=== PATIENT | female | born 1960 | race Caucasian/White ===

== ENCOUNTER 2022-06-04 14:28 | Inpatient (IN) | payer OTHER ==
--- NOTE | 2022-06-04 15:26 | ER ---
Nurse's Notes [facility] Name: Lakshmi Salazar Age: 62 yrs Sex: Female : 1960 Arrival Date: 06/04/2022 Time: 14:30 Bed 20 Private MD: Diagnosis: Cellulitis of other sites;Type 2 diabetes mellitus with foot ulcer;Tachycardia, unspecified Presentation: 06/04 14:30 Chief complaint: Patient states: Toned out to pt home for right foot pain. C/O Right ld1 big toe swelling \T\ pain, redness going up to right ankle. Reports being diabetic. Coronavirus screen: At this time, the client does not indicate any symptoms associated with coronavirus-19. Ebola Screen: No symptoms or risks identified at this time. Initial Sepsis Screen: Does the patient meet any 2 criteria? No. Patient's initial sepsis screen is negative. Does the patient have a suspected source of infection? No. Patient's initial sepsis screen is negative. Risk Assessment: Do you want to hurt yourself or someone else? Patient reports no desire to harm self or others. Onset of symptoms was June 04, 2022. 14:30 Method Of Arrival: EMS: [facility] ld1 14:30 Acuity: MEIR 3 ld1 Triage Assessment: 14:32 General: Appears in no apparent distress. comfortable, Behavior is calm, cooperative, ld1 appropriate for age. Pain: Complains of pain in right foot Pain radiates to anterior aspect of right ankle and dorsum of right foot Pain currently is 8 out of 10 on a pain scale. Quality of pain is described as sharp, shooting, Pain began 2-3 days ago. EENT: No signs and/or symptoms were reported regarding the EENT system. Neuro: Level of Consciousness is awake, alert, obeys commands, Oriented to person, place, time, situation. Cardiovascular: Capillary refill < 3 seconds Patient's skin is warm and dry. Rhythm is sinus tachycardia. Respiratory: Airway is patent Respiratory effort is even, unlabored. GI: Abdomen is flat, non-distended. : No signs and/or symptoms were reported regarding the genitourinary system. Derm: No signs and/or symptoms reported regarding the dermatologic system. Musculoskeletal: No signs and/or symptoms reported regarding the musculoskeletal system. Historical: - Allergies: 14:32 No Known Allergies; ld1 - PMHx: 14:32 Diabetes mellitus; Hypertensive disorder; Chronic obstructive lung disease; ld1 - Immunization history:: Adult Immunizations up to date, Client reports receiving the 2nd dose of the Covid vaccine. - Social history:: Smoking status: Patient reports the use of cigarette tobacco products, smokes one-half pack cigarettes per day, Patient/guardian denies using alcohol. Screenin:31 Abuse screen: Denies threats or abuse. Denies injuries from another. Nutritional kc6 screening: No deficits noted. Tuberculosis screening: No symptoms or risk factors identified. Fall Risk No fall in past 12 months (0 pts). No secondary diagnosis (0 pts). IV access (20 points). Ambulatory Aid- None/Bed Rest/Nurse Assist (0 pts). Gait- Normal/Bed Rest/Wheelchair (0 pts) Mental Status- Oriented to own ability (0 pts). Total Barrios Fall Scale indicates No Risk (0-24 pts). Assessment: 17:32 General: Appears in no apparent distress. comfortable, Behavior is calm, cooperative, kc6 appropriate for age. Neuro: Shepard Agitation-Sedation Scale (RASS): 0 - Alert and Calm Level of Consciousness is awake, alert, obeys commands, Oriented to person, place, time, situation, Appropriate for age. Cardiovascular: Heart tones S1 S2 present Capillary refill < 3 seconds. Respiratory: Airway is patent Trachea midline Respiratory effort is even, unlabored, Respiratory pattern is regular, symmetrical, Breath sounds are clear bilaterally. GI: No signs and/or symptoms were reported involving the gastrointestinal system. : No signs and/or symptoms were reported regarding the genitourinary system. EENT: No signs and/or symptoms were reported regarding the EENT system. Derm: Skin is intact, Skin is pink, warm \T\ dry. Derm: Rash noted that is red, on right first toe Bruising that is dark purple, on right first toe. Musculoskeletal: Circulation, motion, and sensation intact. Capillary refill < 3 seconds, Range of motion: intact in all extremities. 18:32 Reassessment: Patient appears in no apparent distress at this time. No changes from kc6 previously documented assessment. Patient and/or family updated on plan of care and expected duration. Pain level reassessed. Patient is alert, oriented x 3, equal unlabored respirations, skin warm/dry/pink. Vital Signs: 14:30 BP 177 / 94; Pulse 115; Resp 18; Temp 98.3; Pulse Ox 95% on R/A; Pain 8/10; ld1 17:34 BP 135 / 116; Pulse 110; Resp 18 S; Pulse Ox 97% on R/A; kc6 18:34 BP 146 / 75; Pulse 100; Resp 18 S; Pulse Ox 92% on R/A; kc6 ED Course: 14:30 Patient arrived in ED. ld1 14:32 Triage completed. ld1 14:32 Arm band placed on right wrist. ld1 15:03 Adriel Montilla DO is Attending Physician. ms3 15:24 Dorothea Sprague MD is Hospitalizing Provider. ms3 16:05 Ashwini Ramirez, FRANTZ is Primary Nurse. kc6 17:34 Patient has correct armband on for positive identification. Bed in low position. Call kc6 light in reach. Side rails up X 1. Adult w/ patient. 18:57 Lactate w/ 2H reflex if indic. Sent. kc6 18:57 Protime (+inr) Sent. kc6 18:57 Ptt, Activated Sent. kc6 19:01 EKG done, by ED staff, reviewed by Adriel Montilla DO. jd3 21:19 No provider procedures requiring assistance completed. Patient admitted, IV remains in aa9 place. Administered Medications: 17:31 Drug: vancoMYCIN 1 grams Route: IVPB; Infused Over: 2 hrs; Site: left antecubital; kc6 18:31 Follow up: Response: No adverse reaction; IV Status: Infusion continued; IV Intake: kc6 250ml Medication: 21:20 VIS not applicable for this client. aa9 Intake: 18:31 IV: 250ml; Total: 250ml. kc6 Outcome: 15:26 Decision to Hospitalize by Provider. ms3 21:20 Admitted to ER Hold. Please see [facility] for further documentation. aa9 21:20 Condition: stable 21:20 Instructed on the need for admit. 06/05 15:09 Patient left the ED. Signatures: Shweta Liz RN RN Cheko Espinal RN RN jd3 Adriel Montilla DO DO ms3 Lia Kimball RN RN ld1 Lydia Browning RN RN aa9 Ashwini Ramirez, RN RN kc6
--- NOTE | 2022-06-04 15:26 | EDPHYS ---
Physician Documentation [facility] Name: Lakshmi Salazar Age: 62 yrs Sex: Female : 1960 Arrival Date: 06/04/2022 Time: 14:30 Bed 20 Private MD: ED Physician Adriel Montilla HPI: 06/04 18:10 This 62 yrs old Female presents to ER via EMS with complaints of Foot Pain. ms3 18:10 The patient presents with pain, a rash, tenderness. ms3 18:10 The complaints affect the right foot. Context: The problem was sustained at home, ms3 resulted from an unknown cause, Mechanism of Injury: no injury the patient is able to ambulate. Onset: The symptoms/episode began/occurred 5 day(s) ago. Modifying factors: The symptoms are alleviated by nothing, the symptoms are aggravated by nothing. Associated signs and symptoms: Pertinent positives: rash, Pertinent negatives: fever. Severity of symptoms: At their worst the symptoms were moderate, in the emergency department the symptoms are unchanged. 62-year-old female presents via [facility] for right foot pain, rash, blistering. Patient states she is concerned that she has a diabetic. Patient states this is been ongoing for 5 days.. Historical: - Allergies: 14:32 No Known Allergies; ld1 - PMHx: 14:32 Diabetes mellitus; Hypertensive disorder; Chronic obstructive lung disease; ld1 - Immunization history:: Adult Immunizations up to date, Client reports receiving the 2nd dose of the Covid vaccine. - Social history:: Smoking status: Patient reports the use of cigarette tobacco products, smokes one-half pack cigarettes per day, Patient/guardian denies using alcohol. ROS: 18:12 Constitutional: Negative for fever, and chills. Neck: Negative for injury, pain, and ms3 swelling, Cardiovascular: Negative for chest pain, and palpitations. Respiratory: Negative for shortness of breath, cough, wheezing, and pleuritic chest pain, Abdomen/GI: Negative for abdominal pain, nausea, vomiting, diarrhea, and constipation, Neuro: Negative for headache, weakness, numbness, tingling. 18:12 MS/extremity: Positive for rash, swelling, of the right foot, blister right foot. 18:12 All other systems are negative. Exam: 18:12 Constitutional: This is a well developed, well nourished patient who is awake, alert, ms3 and in no acute distress. Head/Face: Normocephalic, atraumatic. Neck: Trachea midline, no cervical lymphadenopathy. Supple, full range of motion without nuchal rigidity, or vertebral point tenderness. No Meningismus. Chest/axilla: Normal chest wall appearance and motion. Nontender with no deformity. Cardiovascular: Regular rate and rhythm with a normal S1 and S2. No gallops, murmurs, or rubs. Normal PMI, no JVD. No pulse deficits. Respiratory: Lungs have equal breath sounds bilaterally, clear to auscultation and percussion. No rales, rhonchi or wheezes noted. No increased work of breathing, no retractions or nasal flaring. 18:12 Skin: rash can be described as bullous, erythematous, on the right first toe and dorsum of right foot. 19:20 ECG was reviewed by the Attending Physician. ms3 Vital Signs: 14:30 BP 177 / 94; Pulse 115; Resp 18; Temp 98.3; Pulse Ox 95% on R/A; Pain 8/10; ld1 17:34 BP 135 / 116; Pulse 110; Resp 18 S; Pulse Ox 97% on R/A; kc6 18:34 BP 146 / 75; Pulse 100; Resp 18 S; Pulse Ox 92% on R/A; kc6 MDM: 15:26 Patient medically screened. ms3 18:12 Differential diagnosis: cellulitis. Data reviewed: vital signs, nurses notes, lab test ms3 result(s), and as a result, I will admit patient. Counseling: I had a detailed discussion with the patient and/or guardian regarding: the historical points, exam findings, and any diagnostic results supporting the discharge/admit diagnosis, lab results, the need for further work-up and treatment in the hospital. ED course: Discussed case with hospitalist and they accept patient for admission. All questions were answered. Discussed necessity for admission with patient and she understands and agrees with plan.. 06/04 15:22 Order name: CBC with Diff; Complete Time: 18:09 ms3 12 15:22 Order name: CMP; Complete Time: 18:09 ms3 06/04 15:22 Order name: Blood Culture Adult (2) ms3 06/04 15:33 Order name: SARS RAPID; Complete Time: 18:09 ms3 06/04 17:15 Order name: NT PRO-BNP; Complete Time: 18:09 EDMS 06/04 18:10 Order name: Lactate w/ 2H reflex if indic. ms3 06/04 18:10 Order name: Protime (+inr) ms3 06/04 18:10 Order name: Ptt, Activated ms3 06/04 19:24 Order name: Protime (+INR); Complete Time: 19:35 EDMS 06/04 19:24 Order name: PTT, Activated Partial Thromb; Complete Time: 19:35 EDMS 06/04 19:40 Order name: Lactate w/ 2H reflex if indic.; Complete Time: 19:40 EDMS 06/04 22:48 Order name: Glucose, Ancillary Testing EDMS 06/05 03:02 Order name: CBC with Automated Diff EDMS 06/05 03:17 Order name: Basic Metabolic Panel EDMS 06/04 18:10 Order name: EKG; Complete Time: 18:10 ms3 06/04 18:10 Order name: Accucheck; Complete Time: 18:40 ms3 06/04 18:10 Order name: Cardiac monitoring; Complete Time: 18:40 ms3 06/04 18:10 Order name: EKG - Nurse/Tech; Complete Time: 18:57 ms3 06/04 18:10 Order name: IV Saline Lock - Large Bore; Complete Time: 18:41 ms3 06/04 18:10 Order name: Labs collected and sent; Complete Time: 18:41 ms3 06/04 18:10 Order name: O2 Per Protocol; Complete Time: 18:20 ms3 06/04 18:10 Order name: O2 Sat Monitoring; Complete Time: 18:19 ms3 06/04 18:10 Order name: Vital Signs; Complete Time: 18:19 ms3 06/05 08:44 Order name: MRI EDMS 06/05 08:49 Order name: Glucose, Ancillary Testing EDMS 06/05 12:52 Order name: Glucose, Ancillary Testing EDMS EC:20 Rate is 104 beats/min. Rhythm is regular. QRS [place] is Normal. [place] interval is normal. ms3 QRS interval is normal. Clinical impression: Sinus tachycardia. Interpreted by me. Reviewed by me. Administered Medications: 17:31 Drug: vancoMYCIN 1 grams Route: IVPB; Infused Over: 2 hrs; Site: left antecubital; kc6 18:31 Follow up: Response: No adverse reaction; IV Status: Infusion continued; IV Intake: kc6 250ml Disposition Summary: 06/04/22 15:26 Hospitalization Ordered Hospitalization Status: Inpatient Admission ms3 Provider: Dorothea Sprague ms3 Condition: Stable ms3 Problem: new ms3 Symptoms: are unchanged ms3 Bed/Room Type: Standard ms3 Location: Telemetry/MedSurg (Inpatient)(06/05/22 12:51) [facility] Room Assignment: 421(06/05/22 12:51) ja Diagnosis - Cellulitis of other sites ms3 - Type 2 diabetes mellitus with foot ulcer ms3 - Tachycardia, unspecified ms3 Forms: - Medication Reconciliation Form ms3 - SBAR form ms3 Signatures: Dispatcher [employer] EDMS Chi Warner MD MD rn Garcia, Cindy, RN RN cg [place] RN RN ja1 Adriel Montilla DO DO ms3 Lia Kimball RN RN chanel1 Ashwini Ramirez RN RN kc6 Corrections: (The following items were deleted from the chart) 19:45 15:26 Telemetry/MedSurg (Inpatient) ms3 cg 19:45 15:26 ms3 cg 06/05 12:51 06/04 19:45 [facility] ER HOLD cg ja1 06/05 12:51 12 19:45 ERHOLD- cg ja1
[2022-06-04] MEDS ORDERED: ACETAMINOPHEN 325 MG TABLET PO PRN (16:14)
[2022-06-04] MEDS ORDERED: LABETALOL 20 MG/4ML SYRINGE IV PRN (16:16)
--- NOTE | 2022-06-04 16:22 | P.HP ---
Certification for Inpatient Patient admitted to: Inpatient With expected LOS: >2 Midnights Practitioner: I am a practitioner with admitting privileges, knowledge of patient current condition, hospital course, and medical plan of care. Services: Services provided to patient in accordance with Admission requirements found in Title 42 Section 412.3 of the Code of Federal Regulations Patient History Date of Service: 06/04/22 Reason for admission: Right foot swelling\redness\pain History of Present Illness: Patient is a 62-year-old female with a past medical history significant for nicotine dependence, DM 2, hypertension, COPD who presents with complaint of right foot swelling, redness and pain. Patient reported that 5 days ago as she was walking her dog she became entangled with the dog and lost her balance. She reported that she hit her head against a pole and also hit her right foot. Patient cannot remember what hit her in the foot. Patient denies falling or losing consciousness. Patient reported that she only noticed a bruise on the right great toe. Patient reported that later she started having swelling and pain in the right great toe. Patient reported that a day after she noticed redness on the right great which started spreading up her right foot. Patient indicated that the bruising turned into a blister which started draining serosanguineous drainage yesterday. Patient rated right foot pain as 3/10 in severity and described pain as aching in quality. Patient reported associated signs and symptoms of chills. Patient denies any other signs and symptoms. Symptoms are aggravated or relieved by nothing. Patient decided to present to the hospital for medical evaluation. Allergies No Known Allergies Allergy (Unverified 06/09/12 12:40) - Past Medical/Surgical History -: DM 2 -: Hypertension -: COPD -: Nicotine dependence Past Surgical History: Reviewed- Non-Contributory - Family History Family History: Reviewed- Non-Contributory - Social History Smoking Status: Current every day smoker Counseled patient to stop smoking for: less than 10 minutes Smoking therapy provided: Yes Patient receptive to therapy: Yes Alcohol use: No CD- Drugs: No Caffeine use: Yes Place of Residence: Home Review of Systems General: Chills Eyes: Unremarkable ENT: Unremarkable Respiratory: Unremarkable Cardiovascular: Unremarkable Gastrointestinal: Unremarkable Genitourinary: Unremarkable Musculoskeletal: Foot Pain, Other (Right foot swelling) Integumentary: Other (Right foot redness) Neurological: Unremarkable Lymphatics: Unremarkable Physical Examination - Physical Exam General: Alert, In no apparent distress, Oriented x3, Cooperative HEENT: Atraumatic, PERRLA, Mucous membr. moist/pink, EOMI, Sclerae nonicteric Neck: Supple, 2+ carotid pulse no bruit, No LAD, Without JVD or thyroid abnormality Respiratory: Clear to auscultation bilaterally, Normal air movement Cardiovascular: Regular rate/rhythm, Normal S1 S2 Capillary refill: <2 Seconds Gastrointestinal: Normal bowel sounds, Soft and benign, Non-distended, No tenderness Musculoskeletal: Swelling, Erythema, Tenderness Integumentary: No rashes, Skin breakdown, Erythema Neurological: Normal speech, Normal tone, Normal affect Lymphatics: No axilla or inguinal lymphadenopathy Assessment and Plan - Plan --Right foot cellulitis. Blood cultures pending. Continue antibiotics. MRI of foot to rule out osteomyelitis. Continue supportive care --Acute pain. We will manage pain with current pain medication regimen. --DM2. BS monitoring with sliding scale insulin. --COPD. Stable. Continue home medications. --Hypertension. Poorly controlled. Continue home medications and labetalol as needed. --Nicotine dependence. Patient placed on nicotine patch and counseled on tobacco cessation. --Hypokalemia. Replete as needed. --CKD 2. Stable. We will continue to monitor renal functions. --DVT prophylaxis with Lovenox subQ Discharge Plan: Home Plan to discharge in: Greater than 2 days - Advance Directives Does patient have a Living Will: No Does patient have a Durable POA for Healthcare: No - Code Status/Comfort Care Code Status Assessed: Yes Physician Review: Patient Assessed, Agree with Above Assessment and Plan Critical Care: No
[2022-06-04] MEDS: INSULIN -REGULAR HUMAN 50 UNIT/0.5 ML ML SQ SCH ×2 (16:30→21:00)
[2022-06-04 16:39] LABS: Absolute Lymphocytes (CBC) 1.2 K/uL (0.7-4.9); Hematocrit 42.3 % (36.0-45.0); Lymphocytes % 8.8 % (15.3-44.8); MCV 88.8 fL (80-100); MPV 8.2 fL (7.6-11.3); RBC Red Blood Cell Count 4.76 M/uL (3.86-4.86)
[2022-06-04 16:54] LABS: SARS-CoV-2 Antigen Rapid Res Negative (Negative)
[2022-06-04] MEDS: ENOXAPARIN 40 MG/0.4 ML SQ SCH (17:00)
[2022-06-04] MEDS ORDERED: VANCOMYCIN 1 GM in NA CHLORIDE 0.9% 250 ML IVPB ONE (17:00)
[2022-06-04] MEDS: CEFEPIME 1 GM in NA CHLORIDE 0.9% 100 ML IV SCH (17:00)
[2022-06-04] MEDS ORDERED: VANCOMYCIN 1 GM/VIAL ONE (17:09)
[2022-06-04] MEDS ORDERED: NA CHLORIDE 0.9% 250 ML ONE (17:16)
[2022-06-04 17:18] LABS: Bilirubin Total 0.3 mg/dL (0.2-1.0); Potassium 3.4 mmol/L (3.5-5.1)
[2022-06-04 19:24] LABS: Protime INR 1.01
[2022-06-04] MEDS: NICOTINE 21 MG/PAT TD SCH (20:00)
[2022-06-04] MEDS: HYDROCODONE/APAP 5/325 MG TAB PO PRN (20:28)
[2022-06-04] MEDS ORDERED: HYDROCODONE/APAP 5/325 MG TAB ONE (20:28)
[2022-06-04] MEDS: TRAZODONE 50 MG TABLET PO SCH (21:00)
[2022-06-04] MEDS: AMITRIPTYLINE 25 MG TAB PO SCH (21:00)
[2022-06-04] MEDS ORDERED: hydrOXYzine HCL 25 MG TAB PO PRN (21:12)
[2022-06-04] MEDS ORDERED: NA CHLORIDE 0.9% 100 ML IV ONE (21:40)
[2022-06-04] MEDS ORDERED: ENOXAPARIN 40 MG/0.4 ML SQ ONE (21:40)
[2022-06-04] MEDS ORDERED: NICOTINE 21 MG/PAT TD ONE (21:40)
[2022-06-04] MEDS ORDERED: CEFEPIME 1 GM/VIAL ONE (21:41)
[2022-06-04] MEDS ORDERED: AMITRIPTYLINE 50 MG TAB ONE (22:26)
[2022-06-04] MEDS ORDERED: TRAZODONE 50 MG TABLET ONE (22:26)
[2022-06-04] MEDS ORDERED: VANCOMYCIN 250 MG in NA CHLORIDE 0.9% 100 ML IVPB ONE (23:00)
[2022-06-04] MEDS ORDERED: INSULIN -REGULAR HUMAN 50 UNIT/0.5 ML ML ONE (23:03)
[2022-06-04 23:34] VITALS: BMI 28.2
[2022-06-05] MEDS ORDERED: NA CHLORIDE 0.9% 100 ML IV ONE ×3 (00:44→09:02)
[2022-06-05] MEDS ORDERED: VANCOMYCIN 500 MG/VIAL ONE (00:44)
[2022-06-05] MEDS: CEFEPIME 1 GM in NA CHLORIDE 0.9% 100 ML IV SCH ×3 (01:00→16:14)
[2022-06-05] MEDS ORDERED: CEFEPIME 1 GM/VIAL ONE ×2 (01:51→09:02)
[2022-06-05 02:59] LABS: Absolute Lymphocytes (CBC) 2.7 K/uL (0.7-4.9); Hematocrit 36.6 % (36.0-45.0); Lymphocytes % 20.8 % (15.3-44.8); MCV 89.2 fL (80-100); MPV 8.4 fL (7.6-11.3)
[2022-06-05] MEDS ORDERED: VANCOMYCIN 1 GM in NA CHLORIDE 0.9% 250 ML IVPB SCH (03:00)
[2022-06-05 03:11] LABS: Potassium 3.9 mmol/L (3.5-5.1)
[2022-06-05] MEDS: INSULIN -REGULAR HUMAN 50 UNIT/0.5 ML ML SQ SCH ×4 (07:30→21:00)
[2022-06-05] MEDS ORDERED: INFLUENZA VACCINE (for 6+ mo) 0.5 ML DOSE IMVAC ONE (08:00)
--- NOTE | 2022-06-05 08:44 | RAD REPORT ---
EXAM DESCRIPTION: MRI - Foot Right Wo Cont - 06/05/2022 8:10 am CLINICAL HISTORY: R O Osteomyelitis, diabetes, open wound medial side of right first toe COMPARISON: No comparisons TECHNIQUE: Multiplanar imaging of the right foot performed using T1 weighted, T1 fat saturation, T2 fat saturation and T2 stir sequencing. FINDINGS: Motion limits the examination. Normal marrow pattern is seen in the phalanges of the first toe. No cortical thinning or disruption i dentifiable. Elsewhere no suspicious marrow pattern seen in the foot. The wound is seen in the medial right first toe. No drainable fluid collection identified. IMPRESSION: No osteomyelitis of the first toe. No other significant findings.
[2022-06-05] MEDS ORDERED: INSULIN -REGULAR HUMAN 50 UNIT/0.5 ML ML ONE (08:59)
[2022-06-05] MEDS: NICOTINE 21 MG/PAT TD SCH (09:00)
[2022-06-05] MEDS: ASPIRIN 81 MG CHEWABLE TABLET PO SCH (09:00)
[2022-06-05] MEDS: AMLODIPINE 10 MG TAB PO SCH (09:00)
[2022-06-05] MEDS: ENOXAPARIN 40 MG/0.4 ML SQ SCH (09:00)
[2022-06-05] MEDS: GABAPENTIN 100 MG CAP PO SCH (09:00)
[2022-06-05] MEDS: FLUOXETINE 20 MG CAP PO SCH (09:00)
[2022-06-05] MEDS: glipiZIDE 5 MG TAB PO SCH (09:00)
[2022-06-05] MEDS ORDERED: NICOTINE 21 MG/PAT TD ONE (09:01)
[2022-06-05] MEDS ORDERED: ASPIRIN 81 MG CHEWABLE TABLET ONE (09:01)
[2022-06-05] MEDS ORDERED: AMLODIPINE 10 MG TAB ONE (09:02)
[2022-06-05] MEDS ORDERED: HYDROCODONE/APAP 5/325 MG TAB ONE (09:02)
[2022-06-05] MEDS: HYDROCODONE/APAP 5/325 MG TAB PO PRN ×2 (09:15→21:40)
[2022-06-05] MEDS: VANCOMYCIN 1.5 GM in NA CHLORIDE 0.9% 500 ML IVPB SCH (10:55)
[2022-06-05] MEDS ORDERED: ENOXAPARIN 40 MG/0.4 ML SQ ONE (10:58)
--- NOTE | 2022-06-05 14:36 | EKG ---
Test Date: 2022-06-04 Test Time: 18:57:55 Engineering Drafter: SREE MEASUREMENT RESULTS: Intervals: Rate: 104 TN: 120 QRSD: 88 QT: 346 QTc: 454 [place]: P: 21 TN: 120 QRS: 25 T: 120 INTERPRETIVE STATEMENTS: Sinus tachycardia Cannot rule out Anterior infarct, age undetermined Abnormal ECG Compared to ECG 06/09/2012 15:31:17 Myocardial infarct finding now present Sinus rhythm no longer present Electronically Signed On 06-05-22 14:34:23 CULINARY WORKER by Clifton Bowers
[2022-06-05] MEDS: TRAZODONE 50 MG TABLET PO SCH (21:41)
[2022-06-05] MEDS: AMITRIPTYLINE 25 MG TAB PO SCH (21:41)
[2022-06-05] MEDS ORDERED: VANCOMYCIN 1.25 GM in NA CHLORIDE 0.9% 250 ML IVPB SCH (23:00)
[2022-06-06] MEDS: CEFEPIME 1 GM in NA CHLORIDE 0.9% 100 ML IV SCH ×3 (00:09→16:34)
[2022-06-06 03:44] LABS: Magnesium 1.6 mg/dL (1.6-2.4); Phosphorus 3.4 mg/dL (2.5-4.9); Potassium 3.8 mmol/L (3.5-5.1)
[2022-06-06] MEDS: VANCOMYCIN 1.5 GM in NA CHLORIDE 0.9% 500 ML IVPB SCH ×2 (04:00→21:57)
[2022-06-06] MEDS ORDERED: VANCOMYCIN 500 MG/VIAL ONE (04:15)
[2022-06-06] MEDS ORDERED: NA CHLORIDE 0.9% 0 ML ONE ×2 (04:15→15:49)
[2022-06-06] MEDS ORDERED: NA CHLORIDE 0.9% 500 ML ONE (04:17)
[2022-06-06] MEDS ORDERED: MAGNESIUM SULFATE 1 gm IVPB 1 GM/100 ML BAG IV ONE (07:00)
[2022-06-06] MEDS: INSULIN -REGULAR HUMAN 50 UNIT/0.5 ML ML SQ SCH ×4 (07:30→21:49)
[2022-06-06 08:09] LABS: Specific Gravity 1.013 (1.005-1.030); Urine Bacteria <20 /HPF (<20); Urine Bilirubin NEGATIVE (Negative); Urine Blood Negative (Negative); Urine Clarity Clear (Clear); Urine Color Light-Yellow (Yellow); Urine Glucose NEGATIVE (Negative); Urine Mucus Slight /HPF (None Seen); Urine Protein 1+ (Negative); Urine Urobilinogen Normal (Normal)
[2022-06-06] MEDS: FLUOXETINE 20 MG CAP PO SCH (08:56)
[2022-06-06] MEDS: glipiZIDE 5 MG TAB PO SCH (08:56)
[2022-06-06] MEDS: AMLODIPINE 10 MG TAB PO SCH (08:56)
[2022-06-06] MEDS: GABAPENTIN 100 MG CAP PO SCH (08:56)
[2022-06-06] MEDS: ENOXAPARIN 40 MG/0.4 ML SQ SCH (08:56)
[2022-06-06] MEDS: ASPIRIN 81 MG CHEWABLE TABLET PO SCH (08:56)
[2022-06-06] MEDS: NICOTINE 21 MG/PAT TD SCH (08:57)
[2022-06-06] MEDS ORDERED: POTASSIUM CL SA 10 MEQ TAB PO ONE (09:00)
[2022-06-06] MEDS: HYDROCODONE/APAP 5/325 MG TAB PO PRN ×2 (10:23→21:48)
[2022-06-06] MEDS: ONDANSETRON 4 MG/2 ML VIAL IV PRN ×2 (11:19→21:08)
[2022-06-06] MEDS ORDERED: HYDROCORTISONE SUC 100 MG INJ IV ONE (13:22)
[2022-06-06] MEDS: TRAZODONE 50 MG TABLET PO SCH (21:49)
[2022-06-06] MEDS: COLCHICINE 0.6 MG TAB PO SCH (21:49)
[2022-06-06] MEDS: AMITRIPTYLINE 25 MG TAB PO SCH (21:49)
[2022-06-06] MEDS ORDERED: PROMETHAZINE INJ 25 MG/ML AMP IV ONE (22:47)
[2022-06-07] MEDS: CEFEPIME 1 GM in NA CHLORIDE 0.9% 100 ML IV SCH ×3 (04:15→16:24)
[2022-06-07] MEDS: INSULIN -REGULAR HUMAN 50 UNIT/0.5 ML ML SQ SCH ×4 (07:30→20:45)
[2022-06-07] MEDS: ENOXAPARIN 40 MG/0.4 ML SQ SCH (08:03)
[2022-06-07] MEDS: GABAPENTIN 100 MG CAP PO SCH (08:04)
[2022-06-07] MEDS: AMLODIPINE 10 MG TAB PO SCH (08:04)
[2022-06-07] MEDS: FLUOXETINE 20 MG CAP PO SCH (08:04)
[2022-06-07] MEDS: COLCHICINE 0.6 MG TAB PO SCH ×2 (08:04→20:45)
[2022-06-07] MEDS: ASPIRIN 81 MG CHEWABLE TABLET PO SCH (08:04)
[2022-06-07] MEDS: glipiZIDE 5 MG TAB PO SCH (08:05)
[2022-06-07] MEDS: NICOTINE 21 MG/PAT TD SCH (08:05)
[2022-06-07] MEDS: VANCOMYCIN 1.5 GM in NA CHLORIDE 0.9% 500 ML IVPB SCH (16:27)
[2022-06-07] MEDS: HYDROCODONE/APAP 5/325 MG TAB PO PRN (20:44)
[2022-06-07] MEDS: AMITRIPTYLINE 25 MG TAB PO SCH (20:45)
[2022-06-07] MEDS: TRAZODONE 50 MG TABLET PO SCH (20:45)
[2022-06-08] MEDS: CEFEPIME 1 GM in NA CHLORIDE 0.9% 100 ML IV SCH ×2 (00:20→07:57)
[2022-06-08] MEDS: HYDROCODONE/APAP 5/325 MG TAB PO PRN (04:50)
[2022-06-08 05:07] LABS: Absolute Lymphocytes (CBC) 2.6 K/uL (0.7-4.9); Hematocrit 36.8 % (36.0-45.0); Lymphocytes % 18.4 % (15.3-44.8); MPV 8.2 fL (7.6-11.3); RBC Red Blood Cell Count 4.13 M/uL (3.86-4.86)
[2022-06-08 05:18] LABS: Magnesium 1.7 mg/dL (1.6-2.4)
[2022-06-08] MEDS: INSULIN -REGULAR HUMAN 50 UNIT/0.5 ML ML SQ SCH ×2 (07:30→11:30)
[2022-06-08] MEDS: NICOTINE 21 MG/PAT TD SCH (07:55)
[2022-06-08] MEDS: AMLODIPINE 10 MG TAB PO SCH (07:56)
[2022-06-08] MEDS: glipiZIDE 5 MG TAB PO SCH (07:56)
[2022-06-08] MEDS: ENOXAPARIN 40 MG/0.4 ML SQ SCH (07:56)
[2022-06-08] MEDS: GABAPENTIN 100 MG CAP PO SCH (07:56)
[2022-06-08] MEDS: ASPIRIN 81 MG CHEWABLE TABLET PO SCH (07:56)
[2022-06-08] MEDS: COLCHICINE 0.6 MG TAB PO SCH (07:56)
[2022-06-08] MEDS: FLUOXETINE 20 MG CAP PO SCH (07:57)
[2022-06-08] MEDS: VANCOMYCIN 1.5 GM in NA CHLORIDE 0.9% 500 ML IVPB SCH (09:26)
[2022-06-08] MEDS ORDERED: MAGNESIUM SULFATE 1 gm IVPB 1 GM/100 ML BAG IV ONE (09:33)
[2022-06-08 09:43] VITALS: O2SAT 92
[2022-06-08 14:12] VITALS: BP 163/70; TEMP 97.3
--- NOTE | 2022-06-10 18:18 | P.PN ---
Date of Service: 06/05/22 Subjective Clinically doing better. MRI pending. Physical Examination - Physical Exam General: Alert, In no apparent distress, Oriented x3, Cooperative Respiratory: Clear to auscultation bilaterally, Normal air movement Cardiovascular: Regular rate/rhythm, Normal S1 S2 Gastrointestinal: Normal bowel sounds, Soft and benign, Non-distended, No tenderness Musculoskeletal: Swelling, Erythema, Tenderness Integumentary: No rashes, Skin breakdown, Erythema Neurological: Normal speech, Normal tone, Normal affect Assessment and Plan -Assessment and Plan --Right foot cellulitis. Blood cultures pending. Continue antibiotics. MRI pending. --Acute pain. We will manage pain with current pain medication regimen. --DM2. BS monitoring with sliding scale insulin. --COPD. Stable. Continue home medications. --Hypertension. Poorly controlled. Continue home medications and labetalol as needed. --Nicotine dependence. Patient placed on nicotine patch and counseled on tobacco cessation. --Hypokalemia. Replete as needed. --CKD 2. Stable. We will continue to monitor renal functions. --DVT prophylaxis with Lovenox subQ
--- NOTE | 2022-06-10 18:23 | P.PN ---
Date of Service: 06/06/22 Subjective Not as much streaking at this time. She looks to be doing better. We will keep her in the hospital another couple of days. Hopefully we can discharge her with outpatient follow-up with surgery. Physical Examination - Physical Exam General: Alert, in no apparent distress, oriented x3, cooperative; sitting up interacting Respiratory: Clear to auscultation bilaterally, Normal air movement Cardiovascular: Regular rate/rhythm, Normal S1 S2 Gastrointestinal: Normal bowel sounds, Soft and benign, Non-distended, No tenderness Musculoskeletal: decreased erythema and minimal tenderness(first toe) Neurological: Normal speech, Normal tone, Normal affect Assessment and Plan -Assessment and Plan --Right foot cellulitis. Blood cultures negative. Continue antibiotics. MRI negative for abscess or osteomyelitis. --Acute pain. We will manage pain with current pain medication regimen. --DM2. BS monitoring with sliding scale insulin. --COPD. Stable. Continue home medications. --Hypertension. Poorly controlled. Continue home medications and labetalol as needed. --Nicotine dependence. Patient placed on nicotine patch and counseled on tobacco cessation. --Hypokalemia. Replete as needed. --CKD 2. Stable. We will continue to monitor renal functions. --DVT prophylaxis with Lovenox subQ
--- NOTE | 2022-06-10 18:26 | P.PN ---
Date of Service: 06/07/22 Subjective Pt doing well; stated that she feels better; could possibly go home but will keep her one more day Physical Examination - Physical Exam General: Alert, in no apparent distress, oriented x3, cooperative; sitting up interacting Respiratory: Clear to auscultation bilaterally, Normal air movement Cardiovascular: Regular rate/rhythm, Normal S1 S2 Gastrointestinal: Normal bowel sounds, Soft and benign, Non-distended, No tenderness Musculoskeletal: decreased erythema and minimal tenderness(first toe) Neurological: Normal speech, Normal tone, Normal affect Assessment and Plan -Assessment and Plan --Right foot cellulitis. Blood cultures negative. Continue antibiotics. MRI negative for abscess or osteomyelitis. --Acute pain. Change to oral pain meds. --DM2. BS monitoring with sliding scale insulin. Stable --COPD. Stable. Continue home medications. --Hypertension. Stable; BP better --Hypokalemia. Continue with potassium supplement --CKD 2. Stable. --DVT prophylaxis with Lovenox subQ
--- NOTE | 2022-06-10 18:30 | P.DS ---
Discharge Date: 06/08/22 Disposition: ROUTINE DISCHARGE Discharge Condition: GOOD Reason for Admission: Right foot swelling\redness\pain Brief History of Present Illness: Patient is a 62-year-old female with a past medical history significant for nicotine dependence, DM 2, hypertension, COPD who presents with complaint of right foot swelling, redness and pain. Patient reported that 5 days ago as she was walking her dog she became entangled with the dog and lost her balance. She reported that she hit her head against a pole and also hit her right foot. Patient cannot remember what hit her in the foot. Patient denies falling or losing consciousness. Patient reported that she only noticed a bruise on the right great toe. Patient reported that later she started having swelling and pain in the right great toe. Patient reported that a day after she noticed redness on the right great which started spreading up her right foot. Patient indicated that the bruising turned into a blister which started draining serosanguineous drainage yesterday. Patient rated right foot pain as 3/10 in severity and described pain as aching in quality. Patient reported associated signs and symptoms of chills. Patient denies any other signs and symptoms. Symptoms are aggravated or relieved by nothing. Patient decided to present to the hospital for medical evaluation. Hospital Course: Pt doing well. Clinically, much better. Symptoms improved. Afebrile, ambulating well. Erythema improved. Family at bedside. Plan to DC with outpt follow-up. Vital Signs/Physical Exam: Temp Pulse Resp BP Pulse Ox 97.3 F 92 H 18 163/70 H 99 06/08/22 12:00 06/08/22 12:00 06/08/22 12:00 06/08/22 12:00 06/08/22 12:00 General: Alert, In no apparent distress, Oriented x3 Laboratory Data at Discharge: WBC 14.40 K/uL (4.3-10.9) H 06/08/22 04:24 Hgb 12.3 g/dL (12.0-15.0) 06/08/22 04:24 Hct 36.8 % (36.0-45.0) 06/08/22 04:24 Plt Count 270 K/uL (152-406) 06/08/22 04:24 PT 11.1 SECONDS (9.5-12.5) 06/04/22 18:45 INR 1.01 12/12/22 18:45 APTT 23.3 SECONDS (24.3-36.9) L 06/04/22 18:45 Sodium 137 mmol/L (136-145) 06/08/22 04:24 Potassium 4.0 mmol/L (3.5-5.1) 06/08/22 04:24 BUN 14 mg/dL (7-18) 06/08/22 04:24 Creatinine 0.67 mg/dL (0.55-1.02) 06/08/22 04:24 Glucose 119 mg/dL (74-106) H 06/08/22 04:24 Uric Acid 4.3 mg/dL (2.6-6.0) 06/07/22 04:06 Phosphorus 3.4 mg/dL (2.5-4.9) 06/06/22 02:56 Magnesium 1.7 mg/dL (1.6-2.4) 06/08/22 04:24 Total Bilirubin 0.3 mg/dL (0.2-1.0) 06/04/22 16:29 AST 30 U/L (15-37) 06/04/22 16:29 ALT 43 U/L (13-56) 06/04/22 16:29 Alkaline Phosphatase 75 U/L (45-117) 06/04/22 16:29 Home Medications: Albuterol Sulfate [Proair Hfa] 2 puff NEB BID PRN 06/04/22 Amitriptyline HCl 2 tab PO BEDTIME 06/04/22 Amlodipine Besylate 10 mg PO DAILY 06/04/22 Fluoxetine HCl [Prozac] 1 cap PO DAILY 06/04/22 Gabapentin [Neurontin*] 1 cap PO DAILY 06/04/22 Lisinopril [Zestril] 1 tab PO BID 06/04/22 Metformin HCl 1 tab PO BID* 06/04/22 Ondansetron [Zofran (Odt)*] 1 tab PO Q8HR PRN 06/04/22 Pantoprazole Sodium [Protonix] 1 tab PO BID 06/04/22 Trazodone [Desyrel*] 1 tab PO BEDTIME 06/04/22 glipiZIDE [Glipizide] 1 tab PO DAILY 06/04/22 hydrOXYzine HCL [Atarax*] 2 tab PO Q8HR PRN 06/04/22 Hydrocodone 5/APAP 325 [[place] 5/325*] 1 tab PO Q6H PRN #30 tab 06/08/22 Minocycline HCl 100 mg PO BID #20 cap 06/08/22 Mupirocin Oint [Bactroban 2% Ointment] 22 appl TOP BID #1 ea 06/08/22 Smz./Tmp. [Bactrim Ds 800 MG/160 MG] 1 tab PO BID #20 tab 06/08/22 New Medications: Smz./Tmp. [Bactrim Ds 800 MG/160 MG] 1 tab PO BID #20 tab Mupirocin Oint [Bactroban 2% Ointment] 22 appl TOP BID #1 ea Minocycline HCl 100 mg PO BID #20 cap Hydrocodone 5/APAP 325 [[place] 5/325*] 1 tab PO Q6H PRN #30 tab PRN Reason: Pain Scale 5-7 (Moderate) Physician Discharge Instructions: -DC IV and DC home -Follow-up with PCP in 1 to 2 weeks -Follow-up with Dr. Dalal in 1 to 2 weeks -Please call Dr. Sprague at [phone] if any questions regarding hospital stay -Please call nursing station at [phone] if any nursing or medication questions -Return to the emergency room if symptoms worsen Diet: ADA Activity: Fall precautions Followup: Paco Dalal MD [ACTIVE - CAN ADMIT] - 1-2 Weeks (call to danae an appointment) NONE,NONE [Primary Care Provider] - 1-2 Weeks (call eder schedule an appointment) Time spent managing pt's care (in minutes): 35
== END 2022-06-08 14:10 | disposition home or self-care (01) | DRG 603 ==
LOC: ER 14:28 → ERHOLD 16:11 → 4TH 06-05 14:41
PROVIDERS: ADMIT Nurse Practitioner Family; ATTEND Hospitalist
DX: L03.115 Cellulitis of right lower limb (principal); I12.9 Hypertensive chronic kidney disease with stage 1 through stage 4 chronic kidney disease, or unspecified chronic kidney disease; N18.2 Chronic kidney disease, stage 2 (mild); E11.22 Type 2 diabetes mellitus with diabetic chronic kidney disease; J44.9 Chronic obstructive pulmonary disease, unspecified; E87.6 Hypokalemia; F17.210 Nicotine dependence, cigarettes, uncomplicated; R00.0 Tachycardia, unspecified; Z79.84 Long term (current) use of oral hypoglycemic drugs; Z79.899 Other long term (current) drug therapy; Z20.822 Contact with and (suspected) exposure to COVID-19; W01.198A Fall on same level from slipping, tripping and stumbling with subsequent striking against other object, initial encounter; Y93.K1 Activity, walking an animal; Y92.9 Unspecified place or not applicable
CPT/HCPCS: 36415; 80048; 80053; 80202; 81001; 82947; 83605; 83735; 83880; 84100; 84550; 85025; 85610; 85730; 87040; 87086; 87088; 87811; 93005; 96365; 99285; J0692; J1650; J1720; J1815; J2405; J2550; J3370; J3475; J7040; J7050

== ENCOUNTER 2022-06-10 17:57 | Emergency (ER) | payer OTHER ==
[2022-06-10] MEDS ORDERED: ETOMIDATE 20 MG/10 ML VIAL IV ONE (17:58)
[2022-06-10] MEDS ORDERED: SUCCINYLCHOLINE 20 MG/ML (10 ML) IV ONE (17:58)
[2022-06-10] MEDS ORDERED: RSI MEDICATION KIT IV ONE (17:58)
--- OUTSIDE RECORDS SUMMARY | 2022-06-10 18:01 | XMS REPORT | Continuity of Care Document ---
:1960 Author Organization [facility] t Address [address] [place] [address] Care Team Providers Name Role Phone Unavailable Unavailable Unavailable Problems This patient has no known problems. Allergies, Adverse Reactions, Alerts This patient has no known allergies or adverse reactions. Medications This patient has no known medications. Procedures This patient has no known procedures. Results Test Description Test Time Test Comments Results Result Comments Source HEMOGLOBIN A1c 2022-03-08 09:42:15 Test Item Value Reference Range Interpretation Comme nts HEMOGLOBIN A1c (test code = 6.6 % 4.2-5.6 H [employer] 79053) GUIDELINES FOR HGB A1C: PREDIABETES/INC REASED RISK . . . . . . . 5.7-6.4% DIAGNO SIS OF DIABETES . . . . . . . . . >=6.5% WITH CONFIRMATION OR APPROPRIATE SYM PTOMS NOTE: ASSAY MAY BE AFFECTED BY HEM OGLOBINOPATHIES (SICKLE CELL ANEMIA, S- C DISEASE, OTHERS) OR ARTIFICIALLY LO WERED BY DECREASED RED CELL SURVIVAL ( HEMOLYTIC ANEMIAS, BLOOD LOSS, ETC.). CO NSIDER ALTERNATE TESTING OR LABORATORY C ONSULTATION. CBC W/AUTO DIFF WITH [id number] 08:46:07 Test Item Value Reference Range Interpretation Comments WBC (test code = 10.7 K/UL 3.5-11.0 1001) RBC (test code = 5.04 M/UL 3.80-5.40 1002) HEMOGLOBIN (test code 15.0 G/DL 11.5-15.5 = 1003) HEMATOCRIT (test code 43.4 % 34.0-45.0 = 1004) MCV (test code = 86.1 fL 80.0-99.0 1005) MCH (test code = 29.8 PG 25.0-33.0 1006) MCHC (test code = 34.6 G/DL 31.0-36.0 1007) RDW (test code = 13.0 % 11.5-15.0 1038) NEUTROPHILS (test 56.3 % code = 1008) LYMPHOCYTES (test 30.4 % code = 1010) MONOCYTES (test code 5.0 % = 1011) EOSINOPHILS (test 7.3 % code = 1012) BASOPHILS (test code 0.8 % = 1013) IMMATURE GRANULOCYTES 0.2 % (test code = 1036) NUCLEATED RBCS (test 0.0 /100 WBC'S See_Comment [Aut omated code = 1065) message] The sy stem which generated this result transmitted reference range : 0.0. The refere nce range was not u sed to interpret th is result as normal/abnormal . PLATELET COUNT (test 207 K/UL 130-400 code = 1015) ABSOLUTE NEUTROPHILS 6.01 K/UL 1.50-7.50 (test code = 1066) ABSOLUTE LYMPHOCYTES 3.24 K/UL 1.00-4.00 (test code = 1067) ABSOLUTE MONOCYTES 0.53 K/UL 0.20-1.00 (test code = 1068) ABSOLUTE EOSINOPHILS 0.78 K/UL 0.00-0.50 H (test code = 1040) ABSOLUTE BASOPHILS 0.08 K/UL 0.00-0.20 (test code = 1069) ABS IMMATURE 0.02 K/UL 0.00-0.10 GRANULOCYTES (test code = 1020) ABS NUCLEATED RBCS 0.00 K/UL 0.00-0.11 (test code = 78201) TSH, THIRD [id number] 06:49:16 Test Item Value Reference Range Interpretation Comments TSH, THIRD GENERATION (test code 2.130 UIU/ML 0.400-4.100 = 2821) VITAMIN [id number] 06:49:16 Test Item Value Reference Range Interpretation Comments VITAMIN B-12 (test 441 PG/ML 200-950 UNLESS O THERWISE code = 2840) INDICATED, ALL TESTING PERFORMED [facility] [address] [place] [id number] [address] DIRECTOR: AUSTIN COLEMAN M.D. CLIA NUMBER [id number] CAP ACCREDITATION N O. [id number] COMPREHENSIVE METABOLIC [id number] 05:59:40 Test Item Value Reference Range Interpretation Comments GLUCOSE (test code = 147 MG/DL 70-99 H 2216) BUN (test code = 20 MG/DL 6-20 2207) CREATININE (test 0.76 MG/DL 0.60-1.30 code = 221) eGFR (2020 CKD-EPI) 90 ML/MIN/1.73 >60 (test code = 20311) CALC BUN/CREAT (test 26 RATIO 6-28 code = 223) SODIUM (test code = 140 MEQ/L 606-476 9538) POTASSIUM (test code 4.2 MEQ/L 3.5-5.4 = 2227) CHLORIDE (test code 100 MEQ/L 95-107 = 2214) CARBON DIOXIDE (test 27 MEQ/L 19-31 code = 2205) CALCIUM (test code = 9.5 MG/DL 8.5-10.5 2208) PROTEIN, TOTAL (test 7.0 G/DL 6.1-8.3 code = 2228) ALBUMIN (test code = 3.9 G/DL 3.5-5.2 2200) CALC GLOBULIN (test 3.1 G/DL 1.9-3.7 code = 2239) CALC A/G RATIO (test 1.3 RATIO 1.0-2.6 code = 2233) BILIRUBIN, TOTAL 0.4 MG/DL See_Comment [Automated message] (test code = 2206) The syste m which generated this result transmit silva reference range : <=1.2. The refe rence range was not u sed to interpret th is result as normal/abnormal . ALKALINE PHOSPHATASE 86 U/L 40-136 (test code = 2203) AST (test code = 35 U/L 9-40 2217) ALT (test code = 48 U/L 5-40 H 2218) LIPID [id number] 05:59:40 Test Item Value Reference Range Interpretation Comments CHOLESTEROL (test 157 MG/DL <200 code = 2210) TRIGLYCERIDES (test 96 MG/DL <150 code = 2232) HDL CHOLESTEROL (test 44 MG/DL >39 code = 2220) CALC LDL CHOL (test 94 MG/DL <100 NOTE: C ALCULATED LDL code = 2237) IS BASED ON KIARA-OBREGON METHOD WHICHINCLUDES ADJUSTABLE TRIGLYCERIDE:VL DL CHOLESTEROL RAT IO.THIS FACTOR VARIES B Y MEASURED TRIGLY CERIDE AND NON-HDLCHOL ESTEROL CONCENTRATIONS WITH INCREASED CALCU LATED LDL SEENIN HIGH ER TRIGLYCERIDE OR LOWER NON-HDL SPECIME NS. FOR MOREINFORMATION , SEE CLIENT ANNOUNCE MENT AT [email or web address] [email or web address] LDL/HDL 2.14 RATIO <3.22 (test code = 2238) HEMOGLOBIN [id number] 06:23:56 Test Item Value Reference Range Interpretation Comments HEMOGLOBIN A1c (test code = 86802) 6.2 % 4.2-5.6 H CBC W/AUTO DIFF WITH [id number] 05:16:31 Test Item Value Reference Range Interpretation Comments WBC (test code = 12.6 K/UL 3.5-11.0 H 1001) RBC (test code = 5.05 M/UL 3.80-5.40 1002) HEMOGLOBIN (test code 15.0 G/DL 11.5-15.5 = 1003) HEMATOCRIT (test code 44.1 % 34.0-45.0 = 1004) MCV (test code = 87.3 fL 80.0-99.0 1005) MCH (test code = 29.7 PG 25.0-33.0 1006) MCHC (test code = 34.0 G/DL 31.0-36.0 1007) RDW (test code = 13.1 % 11.5-15.0 1038) NEUTROPHILS (test 52.3 % code = 1008) LYMPHOCYTES (test 34.3 % code = 1010) MONOCYTES (test code 5.2 % = 1011) EOSINOPHILS (test 7.2 % code = 1012) BASOPHILS (test code 0.7 % = 1013) IMMATURE GRANULOCYTES 0.3 % (test code = 1036) NUCLEATED RBCS (test 0.0 /100 WBC'S See_Comment [Aut omated code = 1065) message] The sy stem which generated this result transmitted reference range : 0.0. The refere nce range was not u sed to interpret th is result as normal/abnormal . PLATELET COUNT (test 206 K/UL 130-400 code = 1015) ABSOLUTE NEUTROPHILS 6.58 K/UL 1.50-7.50 (test code = 1066) ABSOLUTE LYMPHOCYTES 4.31 K/UL 1.00-4.00 H (test code = 1067) ABSOLUTE MONOCYTES 0.65 K/UL 0.20-1.00 (test code = 1068) ABSOLUTE EOSINOPHILS 0.91 K/UL 0.00-0.50 H (test code = 1040) ABSOLUTE BASOPHILS 0.09 K/UL 0.00-0.20 (test code = 1069) ABS IMMATURE 0.04 K/UL 0.00-0.10 GRANULOCYTES (test code = 1020) ABS NUCLEATED RBCS 0.00 K/UL 0.00-0.11 (test code = 48121) COMPREHENSIVE METABOLIC [id number] 03:17:11 Test Item Value Reference Range Interpretation Comments GLUCOSE (test code = 166 MG/DL 70-99 H 2216) BUN (test code = 26 MG/DL 6-20 H 2207) CREATININE (test 0.90 MG/DL 0.60-1.30 code = 2213) eGFR (2020 CKD-EPI) 74 ML/MIN/1.73 >60 (test code = 22738) CALC BUN/CREAT (test 29 RATIO 6-28 H code = 2235) SODIUM (test code = 142 MEQ/L 618-197 3100) POTASSIUM (test code 4.2 MEQ/L 3.5-5.4 = 2227) CHLORIDE (test code 102 MEQ/L 95-107 = 2214) CARBON DIOXIDE (test 26 MEQ/L 19-31 code = 220) CALCIUM (test code = 10.1 MG/DL 8.5-10.5 2208) PROTEIN, TOTAL (test 7.3 G/DL 6.1-8.3 code = 222) ALBUMIN (test code = 4.1 G/DL 3.5-5.2 2200) CALC GLOBULIN (test 3.2 G/DL 1.9-3.7 code = 2240) CALC A/G RATIO (test 1.3 RATIO 1.0-2.6 code = 2234) BILIRUBIN, TOTAL 0.3 MG/DL See_Comment [Automated message] (test code = 220) The syste m which generated this result transmit silva reference range : <=1.2. The refe rence range was not u sed to interpret th is result as normal/abnormal . ALKALINE PHOSPHATASE 77 U/L 40-136 (test code = 2203) AST (test code = 30 U/L 9-40 2217) ALT (test code = 48 U/L 5-40 H 2218) LIPID [id number] 03:17:11 Test Item Value Reference Range Interpretation Comments CHOLESTEROL (test 156 MG/DL <200 code = 2210) TRIGLYCERIDES (test 128 MG/DL <150 code = 2232) HDL CHOLESTEROL (test 38 MG/DL >39 L code = 2220) CALC LDL CHOL (test 96 MG/DL <100 NOTE: C ALCULATED LDL code = 2237) IS BASED ON KIARA-OBREGON METHOD WHICHINCLUDES ADJUSTABLE TRIGLYCERIDE:VL DL CHOLESTEROL RAT IO.THIS FACTOR VARIES B Y MEASURED TRIGLY CERIDE AND NON-HDLCHOL ESTEROL CONCENTRATIONS WITH INCREASED CALCU LATED LDL SEENIN HIGH ER TRIGLYCERIDE OR LOWER NON-HDL SPECIME NS. FOR MOREINFORMATION , SEE CLIENT ANNOUNCE MENT AT [email or web address] LDL/HDL 2.53 RATIO <3.22 UNLESS O THERWISE (test code = 2237) INDICATED , ALL TESTING PERFORMED [facility], [address] DIRECTOR: AUSTIN COLEMAN M.D. CLIA NUMBER [id number] CAP ACCREDITATION N O. [id number] LIPID [id number] 04:09:03 Test Item Value Reference Range Interpretation Comments CHOLESTEROL (test 146 MG/DL <200 code = 2210) TRIGLYCERIDES (test 116 MG/DL <150 code = 2232) HDL CHOLESTEROL (test 40 MG/DL >39 code = 2220) CALC LDL CHOL (test 85 MG/DL <100 NOTE: C ALCULATED LDL code = 2237) IS BASED ON KIARA-OBREGON METHOD WHICHINCLUDES ADJUSTABLE TRIGLYCERIDE:VL DL CHOLESTEROL RAT IO.THIS FACTOR VARIES B Y MEASURED TRIGLY CERIDE AND NON-HDLCHOL ESTEROL CONCENTRATIONS WITH INCREASED CALCU LATED LDL SEENIN HIGH ER TRIGLYCERIDE OR LOWER NON-HDL SPECIME NS. FOR MOREINFORMATION , SEE CLIENT ANNOUNCE MENT AT [email or web address] [email or web address] LDL/HDL 2.13 RATIO <3.22 (test code = 2238) COMPREHENSIVE METABOLIC [id number] 04:09:03 Test Item Value Reference Range Interpretation Comments GLUCOSE (test code = 147 MG/DL 70-99 H 2216) BUN (test code = 18 MG/DL 6-20 2207) CREATININE (test 0.78 MG/DL 0.60-1.30 code = 2213) eGFR (2020 CKD-EPI) 87 >60 (test code = 07538) ML/MIN/1.73 CALC BUN/CREAT (test 23 RATIO 6-28 code = 2235) SODIUM (test code = 141 MEQ/L 442-707 8340) POTASSIUM (test code 4.4 MEQ/L 3.5-5.4 = 2227) CHLORIDE (test code 102 MEQ/L 95-107 = 2214) CARBON DIOXIDE (test 23 MEQ/L 19-31 code = 2205) CALCIUM (test code = 9.8 MG/DL 8.5-10.5 2208) PROTEIN, TOTAL (test 7.6 G/DL 6.1-8.3 code = 2228) ALBUMIN (test code = 4.4 G/DL 3.5-5.2 2200) CALC GLOBULIN (test 3.2 G/DL 1.9-3.7 code = 2239) CALC A/G RATIO (test 1.4 RATIO 1.0-2.6 code = 2233) BILIRUBIN, TOTAL 0.3 MG/DL See_Comment [Automated message] (test code = 2206) The [employer] which generated this result transmitted ref erence range: <=1.2. T he reference range was not used to int erpret this result as normal/abnormal . ALKALINE PHOSPHATASE 69 U/L 40-136 (test code = 2203) AST (test code = 36 U/L 9-40 2217) ALT (test code = 60 U/L 5-40 H UNLESS OTH ERWISE 2218) INDICATED, ALL TESTING PERFORM [facility], [place] [address] [place], [place] [id number] [place] [address] DIRECTOR: Camryn YINGIA NUMBER [id number] CAP ACCREDITATION N O. [id number] HEMOGLOBIN [id number] 03:47:14 Test Item Value Reference Range Interpretation Comments HEMOGLOBIN A1c (test 6.5 % 4.2-5.6 H [employer] code = 50585) ASSOCIATION IDELINES FOR HGB A1C: PREDIABETES/INC REASED RISK . . . . . . . 5.7 -6.4% DIAGNOSIS OF DI ABETES . . . . . . . . . >=6 .5% WITH CONFIRMATION OR APPROPRIATE SYMPTOMS NOTE: ASSAY MAY BE AFFECTED BY HEMOGLOBINOPATH IES (SICKLE CELL ANEMIA, S- C DISEASE, OTHERS) OR FERNANDA FICIALLY LOWERED BY DECR EASED RED CELL SURVIVAL ( HEMOLYTIC ANEMIAS, BLOOD LOSS, ETC.). CONSIDER ALTERN ATE TESTING OR LABORATORY C ONSULTATION. CBC W/AUTO DIFF WITH [id number] 03:05:16 Test Item Value Reference Range Interpretation Comments WBC (test code = 12.7 K/UL 3.5-11.0 H 1001) RBC (test code = 5.22 M/UL 3.80-5.40 1002) HEMOGLOBIN (test code 15.5 G/DL 11.5-15.5 = 1003) HEMATOCRIT (test code 44.9 % 34.0-45.0 = 1004) MCV (test code = 86.0 fL 80.0-99.0 1005) MCH (test code = 29.7 PG 25.0-33.0 1006) MCHC (test code = 34.5 G/DL 31.0-36.0 1007) RDW (test code = 12.8 % 11.5-15.0 1038) NEUTROPHILS (test 56.5 % code = 1008) LYMPHOCYTES (test 30.1 % code = 1010) MONOCYTES (test code 6.1 % = 1011) EOSINOPHILS (test 6.0 % code = 1012) BASOPHILS (test code 0.9 % = 1013) IMMATURE GRANULOCYTES 0.4 % (test code = 1036) NUCLEATED RBCS (test 0.0 /100 WBC'S See_Comment [Aut omated code = 1065) message] The sy stem which generated this result transmitted reference range : 0.0. The refere nce range was not u sed to interpret th is result as normal/abnormal . PLATELET COUNT (test 187 K/UL 130-400 code = 1015) ABSOLUTE NEUTROPHILS 7.18 K/UL 1.50-7.50 (test code = 1066) ABSOLUTE LYMPHOCYTES 3.82 K/UL 1.00-4.00 (test code = 1067) ABSOLUTE MONOCYTES 0.78 K/UL 0.20-1.00 (test code = 1068) ABSOLUTE EOSINOPHILS 0.76 K/UL 0.00-0.50 H (test code = 1040) ABSOLUTE BASOPHILS 0.11 K/UL 0.00-0.20 (test code = 1069) ABS IMMATURE 0.05 K/UL 0.00-0.10 GRANULOCYTES (test code = 1020) ABS NUCLEATED RBCS 0.00 K/UL 0.00-0.11 (test code = 31959)
[2022-06-10] MEDS ORDERED: propofoL 1,000 MG/100 ML VIAL IV ONE ×2 (18:10→21:30)
[2022-06-10] MEDS ORDERED: NOREPINEPHRINE BITARTRATE/D5W 4 MG/250 ML BAG IV ONE ×2 (18:33→21:19)
[2022-06-10 18:42] LABS: Arterial Blood Carboxyhemoglob 1.7 % (0-1.5); Blood Gas Oxyhemoglobin 77.1 % (94-97); Blood O2 Saturation 79.6 % (92-98.5)
[2022-06-10 18:47] LABS: Absolute Lymphocytes (CBC) 4.9 K/uL (0.7-4.9); Hematocrit 39.2 % (36.0-45.0); Lymphocytes % 13.3 % (15.3-44.8); MCV 92.2 fL (80-100); MPV 8.1 fL (7.6-11.3); RBC Red Blood Cell Count 4.26 M/uL (3.86-4.86)
[2022-06-10] MEDS ORDERED: CEFEPIME 2 GM VIAL ONE (19:00)
[2022-06-10] MEDS ORDERED: NA CHLORIDE 0.9% 100 ML IV ONE (19:01)
[2022-06-10] MEDS ORDERED: VANCOMYCIN 1 GM/VIAL ONE (19:01)
[2022-06-10] MEDS ORDERED: NA CHLORIDE 0.9% 250 ML ONE (19:01)
[2022-06-10 19:09] LABS: Protime INR 1.33
--- NOTE | 2022-06-10 19:31 | RAD REPORT ---
EXAM DESCRIPTION: RAD - Chest Single View - 06/10/2022 6:48 pm CLINICAL HISTORY: cpr, resp distress COMPARISON: Portable chest May 2012, two view chest February 2009 TECHNIQUE: AP portable chest image was obtained 06/10/2022 6:48 pm . FINDINGS: Endotracheal tube is been placed. Tip is in the mid aortic arch which is in good position. Masses 2 cm above the missy which is abnormally displaced superiorly into the right on a chronic ba sis. Right central line has been placed. No right-sided pneumothorax. Tip of the line is in the right atri um. NG tube has been placed. Tube loops in the mid and lower right chest. A separate right mainstem bronc hus is present. The 2011 study shows markedly elevated right hemidiaphragm with air-filled viscus bel ow the right hemidiaphragm. Prior imaging shows evidence for very large hiatal hernia with most or al l of the stomach in the chest. NG tube may well be positioned normally within the herniated stomach. Correlation will be needed with output from the NG/OG tube. The markedly elevated right hemidiaphragm results in obscure a varela of most of the right lung parench yma. Minimal portion the aerated right apex is normal. Extensive airspace opacification fills the lef t hemithorax which is volume reduced due to supine shallow inspiration imaging. Resuscitation paddles overlie the chest. Heart size is prominent but mostly obscured. A pneumothorax is not identified. Large pleural effusion is not seen. No acute bony abnormality seen. No acute aortic findings suspected. IMPRESSION: ET tube in good position mid aortic arch level. Right jugular central line tip is in the right atrium. NG tube overlies the right hemithorax but is believed to be within the lumen of the stomach which is mostly or fully herniated into the right hemithorax. Extensive airspace opacification throughout the left hemithorax consistent with pneumonia. Right baltazar thorax assessment is limited due to the large hiatal hernia.
--- NOTE | 2022-06-10 19:33 | RAD REPORT ---
EXAM DESCRIPTION: RAD - Chest Single View - 06/10/2022 6:48 pm CLINICAL HISTORY: DYSPNEA COMPARISON: Portable 05/2018 TECHNIQUE: AP portable chest image was obtained 06/10/2022 6:48 pm . FINDINGS: ET tube has been retracted very slightly. Tip is no slightly above the aortic arch approxi mately 3 cm above the missy. This remains adequately positioned. Right jugular central line and right-sided NG/OG tube, as detailed on the earlier chest film, have no t changed. Extensive left hemithorax opacification remains. Heart size is prominent but remains mostly obscured. No pneumothorax identifiable. IMPRESSION: Slight retraction of the ET tube 3 cm above the missy. This remains adequately position ed. Extensive left hemithorax airspace opacification remains.
--- NOTE | 2022-06-10 19:37 | ER ---
Nurse's Notes [facility] Name: Lakshmi Salazar Age: 62 yrs Sex: Female : 1960 Arrival Date: 06/10/2022 Time: 17:58 Bed 3 Private MD: Diagnosis: Severe sepsis with septic shock;Pneumonia, unspecified organism;Acute respiratory failure Presentation: 06/10 17:53 Chief complaint: EMS states: " called 911 for difficulty breathing. Pt was found ss in her bed to have agonal respirations. No pulse. CPR initiated by EMS personnel on scene, intubated with Rafael tube. BGL 207. VS upon arrival 140 HR, 100% assisted. Epi given at 1739, ROSC achieved at 1741" IO placed to L tibia prior to arrival. Coronavirus screen: Client denies travel out of the [place] in the last 14 days. Ebola Screen: Patient denies exposure to infectious person. Patient denies travel to an Ebola-affected area in the 21 days before illness onset. Initial Sepsis Screen: Does the patient meet any 2 criteria? Altered Mental Status. HR > 90 bpm. Does the patient have a suspected source of infection? Yes: Skin breakdown/wound. Risk Assessment: Do you want to hurt yourself or someone else? Unable to obtain. Note Pt recently admitted and discharged from hospital for cellulitis of foot. Onset of symptoms was June 10, 2022. 17:53 Method Of Arrival: EMS: [facility] 17:53 Acuity: MEIR 1 ss Historical: - Allergies: 18:14 Unable to obtain; ss - PMHx: 18:14 Chronic obstructive lung disease; diabetes mellitus; Hypertensive disorder; ss - Immunization history:: Adult Immunizations unknown. - Social history:: Smoking status: unknown. Screenin:16 [facility] ED Fall Risk Assessment (Adult) History of falling in the last 3 months, ph including since admission No falls in past 3 months (0 pts) Confusion or Disorientation No (0 pts) Intoxicated or Sedated Yes (3 pts) Impaired Gait Yes (1 pt) Mobility Assist Device Used No (0 pt) Altered Elimination No (0 pt) Score/Fall Risk Level 3 or more points = High Risk Maintained a safe environment, Hourly rounding (assess needs \\T\\ fall precautionary measures) done. Abuse screen: Denies threats or abuse. Denies injuries from another. Nutritional screening: No deficits noted. Tuberculosis screening: No symptoms or risk factors identified. 22:33 Humpty Dumpty Scale Fall Assessment Tool (age< 18yrs) Age 13 years and above (1 pt). ll3 Fall Risk No fall in past 12 months (0 pts). No secondary diagnosis (0 pts). IV access (20 points). Ambulatory Aid- None/Bed Rest/Nurse Assist (0 pts). Gait- Normal/Bed Rest/Wheelchair (0 pts) Mental Status- Overestimates/Forgets Limitations (15 pts.). Total Barrios Fall Scale indicates Low Risk Score (25-44 pts). Fall prevention measures have been instituted. Side Rails Up X 2 Placed close to Nursing Station Frequent Obs/Assesments occuring Family Present and informed to notify staff if they need to leave bedside As available Patient and Family Educated on Fall Prevention Program and strategies. Assessment: 18:02 Reassessment: RAFAEL tube removed by Dr. Cerrato. Successful intubation by Dr. Cerrato just after removal of rafael tube. 18:27 Reassessment: Xray at bedside. ph 19:00 General: Behavior is unresponsive. Pain: Unable to use pain scale. Patient is ph intubated. Patient is unresponsive. Neuro: Level of Consciousness is sedated, intubated. Oriented to none. Cardiovascular: Capillary refill < 3 seconds in bilateral fingers. Respiratory: Airway is patent Ventilator assessment: ET Tube: 7.5 20 cm. at gum line. FiO2: 100%. PEEP: 10 HOB > 30 degrees. Breath sounds are diminished bilaterally. GI: Abdomen is round distended. : Spears in place to gravity drainage. Derm: Skin is pink, warm \\T\\ dry. 19:24 Reassessment: Necklace given to . vc1 21:00 Reassessment: No changes from previously documented assessment. Patient and/or family ll3 updated on plan of care and expected duration. Pain level reassessed. 22:33 Reassessment: No changes from previously documented assessment. Patient and/or family ll3 updated on plan of care and expected duration. Pain level reassessed. Vital Signs: 17:58 BP 160 / 79; Pulse 142; Resp 20 A; Pulse Ox 99% on ETT ambu; ss 18:03 BP 150 / 78; Pulse 137; Resp 18 A; Pulse Ox 96% on ETT ambu; ss 18:07 BP 159 / 68; Pulse 129; Resp 18 A; Pulse Ox 96% on ETT ambu; ss 18:17 Weight 80 kg; Height 5 ft. 5 in. (165.10 cm); mb9 18:30 BP 88 / 51; Pulse 122; Resp 30; Pulse Ox 91% on ETT vent; ph 18:45 BP 167 / 68; Pulse 111; Resp 30; Pulse Ox 94% on 100% FiO2 ETT vent; ph 19:00 BP 134 / 55; Pulse 121; Resp 30; Pulse Ox 95% on 100% FiO2 ETT vent; ph 19:12 BP 134 / 51; Pulse 112; Resp 32; Temp 96.7(C); Pulse Ox 96% on 100% FiO2 ETT vent; ph 19:25 BP 142 / 62; Pulse 120; Resp 37 A; Temp 96.6(C); Pulse Ox 93% on ETT vent; aa9 19:36 BP 143 / 62; Pulse 127; Resp 41; Temp 96.5(C); Pulse Ox 85% on ETT vent; ph 19:40 BP 137 / 65; Pulse 126; Resp 38; Temp 96.5(C); Pulse Ox 87% ; ph 20:02 BP 143 / 57; Pulse 117; Resp 21; Temp 96.5(C); Pulse Ox 92% on ETT vent; ph 21:00 BP 159 / 63; Pulse 125; Resp 19; Pulse Ox 93% on ETT vent; ll3 21:56 BP 142 / 60; Pulse 133; Resp 23; Temp 98.8(C); Pulse Ox 92% on ETT vent; ll3 22:33 BP 158 / 87; Pulse 134; Resp 22; Temp 98.8(C); Pulse Ox 92% on ETT vent; ll3 18:17 Body Mass Index 29.35 (80.00 kg, 165.10 cm) mb9 ED Course: 16:40 Spears cath inserted, using sterile technique, 16 Fr., by ED staff, balloon inflated, to ph gravity drainage, returned clear yellow urine. 17:58 Patient arrived in ED. eb 18:02 Assisted provider with intubation using 7.5 mm ETT via oral route. ET tube secured at ss 22cm at the teeth. Set up intubation tray. Intubated by Michael Cerrato MD Placement verified by CO2 detector w/ + color change, auscultating bilateral breath sounds, Patient tolerated SEDATED. 18:05 Inserted saline lock: 20 gauge in left forearm, using aseptic technique. Blood mm9 collected. 18:05 EKG done, by ED staff, reviewed by Michael Cerrato MD. mb9 18:05 Patient has correct armband on for positive identification. Bed in low position. Client mm9 placed on continuous cardiac and pulse oximetry monitoring. NIBP monitoring applied. monitoring coordinator on. Pulse ox on. NIBP on. 18:09 Michael Cerrato MD is Attending Physician. sp3 18:14 Triage completed. ss 18:15 NGT: inserted 16 Fr. other via oral route verified return of gastric contents, to ph intermittent suction. Returned gastric contents. Patient transferred, IV remains in place. 18:27 Lakshmi Simpson, RN is Primary Nurse. ph 18:28 CBC with Diff Sent. mb9 18:28 LFT's Sent. mb9 18:28 Magnesium Sent. mb9 18:28 NT PRO-BNP Sent. mb9 18:28 PT-INR Sent. mb9 18:28 Troponin HS Sent. mb9 18:50 XRAY Chest (1 view) In Process Unspecified. EDMS 18:50 Chest Single View XRAY In Process Unspecified. EDMS 19:05 Attending Physician role handed off by Michael Cerrato MD rn 19:05 Chi Warner MD is Attending Physician. rn 19:17 Arm band placed on right ankle. ph 19:55 Urine Drug Screen Sent. aa9 19:55 COVID-19/FLU A+B Sent. aa9 Administered Medications: 17:58 Drug: NS 0.9% 1000 ml {Note: to L IO .} Route: IV; Rate: 1 bolus; Site: Other; ss 18:01 Drug: Etomidate 20 mg Route: IVP; Site: left forearm; ss 19:10 Follow up: Response: No adverse reaction ph 18:01 Drug: Succinylcholine 120 mg Route: IVP; Site: left forearm; ss 19:10 Follow up: Response: No adverse reaction ph 18:10 Drug: Propofol 5 mcg/kg/min Route: IV; Rate: calculated rate; Site: left forearm; mb9 18:20 Follow up: Rate change 25 mcg/kg/min ph 18:45 Follow up: Rate change 30 mcg/kg/min ph 19:12 Follow up: Rate change 35 mcg/kg/min ph 18:10 Drug: Propofol 5 mcg/kg/min Route: IV; Rate: calculated rate; Site: left forearm; mb9 18:34 Drug: Levophed (norepinephrine) 0.1 mcg/kg/min Route: IV; Rate: calculated rate; Site: mb9 right subclavian; 19:11 Follow up: Rate change 0.3 mcg/kg/min ph 19:07 Drug: Cefepime 2 grams Route: IVPB; Rate: 200 ml/hr; Infused Over: 30 mins; Site: right mb9 subclavian; 19:44 Follow up: Response: No adverse reaction; IV Status: Completed infusion; IV Intake: aa9 100ml 19:38 Drug: vancoMYCIN 1 grams Route: IVPB; Infused Over: 2 hrs; Site: right subclavian; ph 19:55 Drug: Dilaudid (HYDROmorphone) 1 mg Route: IVP; Site: right subclavian; ph 20:06 Not Given (Duplicate Order): NS 0.9% (30 ml/kg) 30 ml/kg IV at bolus once; Sepsis ph Protocol; 1 L already administered. 20:11 Drug: NS 0.9% (30 ml/kg) 30 ml/kg Route: IV; Rate: bolus; Site: right subclavian; ph 20:28 Drug: NS 0.9% (30 ml/kg) 30 ml/kg Route: IV; Rate: bolus; Site: right subclavian; ph 21:32 Drug: Midazolam 2 mg Route: IVP; Site: right subclavian; ll3 21:37 Drug: Dilaudid (HYDROmorphone) 1 mg Route: IVP; Site: right subclavian; ll3 Medication: 22:33 VIS not applicable for this client. ll3 Point of Care Testing: Blood Glucose: 18:02 Blood Glucose: 203 mg/dL; ss Ranges: Intake: 19:44 IV: 100ml; Total: 100ml. aa9 Output: 19:49 Urine: 100ml (Spears); Total: 100ml. aa9 Outcome: 19:36 ER care complete, transfer ordered by MD. pittman 22:34 Transferred by ground EMS to [facility], [facility], Transfer form completed. ll3 X-rays sent w/ patient. 22:34 Condition: stable 22:34 Instructed on the need for transfer, Demonstrated understanding of instructions. 22:35 Patient left the ED. ll3 Signatures: Dispatcher [employer] EDMS Chi Warner MD MD rn Smirch, Shelby, FRANTZ RN ss Lakshmi Simpson RN RN Ashley Mosquera Setul, MD MD sp3 Debra Ramos RN RN ll3 Marimar Ross RN RN vc1 Lydia Browning RN RN aa9 Miriam Denson mm9 Jalyn, Ann Weir, RN RN mb9
--- NOTE | 2022-06-10 19:37 | EDPHYS ---
Physician Documentation [facility] Name: Lakshmi Salazar Age: 62 yrs Sex: Female : 1960 Arrival Date: 06/10/2022 Time: 17:58 Bed 3 Private MD: ED Physician Chi Warner HPI: 06/10 18:41 This 62 yrs old Female presents to ER via EMS with complaints of CPR / ROSC. sp3 18:41 Male with history of COPD, diabetes, hypertension just released from this hospital for sp3 cellulitis that was recovering presents for witnessed syncope/collapse with subsequent EMS activation. EMS arrived to find patient in asystole and immediately started CPR and administered 1 round of epinephrine and after 2 minutes of CPR regained spontaneous circulation. Patient was then transported to the ED with Rafael tube for airway and IV fluids during transport. See code flow sheet for sequence of events after arrival to the ED. In summary, intraosseous line was checked and was patent. Peripheral IV was established in the left upper extremity. Succinylcholine and etomidate were used for rapid sequence intubation using MAC 4 blade and 7.5 endotracheal tube with direct visualization of the cords and subsequent placement. A gastric tube was placed by physician as well. Next in a sterile fashion right internal jugular central venous catheter triple-lumen was placed using ultrasound guidance. Chest x-ray per placement demonstrates right mainstem endotracheal tube which was subsequently retracted by 2 cm, proper placement of the IJ central venous catheter, and orogastric tube in appropriate placement as well. Propofol boluses were given 40 mg x 2 and drip started at 20 mcg/min. Normal saline will also be administered along with antibiotics started and a full septic work-up. I spoke to the hospitalist Dr. Sprague who took care of her on her prior visit who states that we do not have an broodmare barn groom here and patient will need to be transferred to higher level of care for full admission.. Historical: - Allergies: 18:14 Unable to obtain; ss - PMHx: 18:14 Chronic obstructive lung disease; diabetes mellitus; Hypertensive disorder; ss - Immunization history:: Adult Immunizations unknown. - Social history:: Smoking status: unknown. ROS: 18:45 Unable to obtain ROS due to obtunded state, patient is on ventilator. sp3 Exam: 18:46 Constitutional: The patient appears Limited physical exam. Patient was having sp3 nonspecific movements and pupils were 4 mm equal round reactive to light. Lung sounds were coarse bilateral but present. Patient had pulses radially that were equal and in the 130s. Abdomen was distended secondary to known hernia. No other rashes were noted. Remainder physical exam limited secondary to obtunded state and came to being in patient's mouth. Rafael tube was removed prior to intubation. Please see HPI for full course of events. 18:57 ECG was reviewed by the Attending Physician. [place] at 130 bpm with normal axis, sp3 incomplete right bundle, nonspecific diffuse ST/T changes including 1 mm elevation in aVR with no reciprocal changes. 19:45 Constitutional: GCS 3, intubated upon my arrival Head/Face: Normocephalic, rn atraumatic. Eyes: Pupils equally round and reactive Cardiovascular: Tachycardic, regular Respiratory: Coarse bilateral breath sounds. Abdomen/GI: soft, non-distended Skin: Warm, dry, duskiness of feet MS/ Extremity: No cyanosis Neuro: GCS 3, intubated. Vital Signs: 17:58 BP 160 / 79; Pulse 142; Resp 20 A; Pulse Ox 99% on ETT ambu; ss 18:03 BP 150 / 78; Pulse 137; Resp 18 A; Pulse Ox 96% on ETT ambu; ss 18:07 BP 159 / 68; Pulse 129; Resp 18 A; Pulse Ox 96% on ETT ambu; ss 18:17 Weight 80 kg; Height 5 ft. 5 in. (165.10 cm); mb9 18:30 BP 88 / 51; Pulse 122; Resp 30; Pulse Ox 91% on ETT vent; ph 18:45 BP 167 / 68; Pulse 111; Resp 30; Pulse Ox 94% on 100% FiO2 ETT vent; ph 19:00 BP 134 / 55; Pulse 121; Resp 30; Pulse Ox 95% on 100% FiO2 ETT vent; ph 19:12 BP 134 / 51; Pulse 112; Resp 32; Temp 96.7(C); Pulse Ox 96% on 100% FiO2 ETT vent; ph 19:25 BP 142 / 62; Pulse 120; Resp 37 A; Temp 96.6(C); Pulse Ox 93% on ETT vent; aa9 19:36 BP 143 / 62; Pulse 127; Resp 41; Temp 96.5(C); Pulse Ox 85% on ETT vent; ph 19:40 BP 137 / 65; Pulse 126; Resp 38; Temp 96.5(C); Pulse Ox 87% ; ph 20:02 BP 143 / 57; Pulse 117; Resp 21; Temp 96.5(C); Pulse Ox 92% on ETT vent; ph 21:00 BP 159 / 63; Pulse 125; Resp 19; Pulse Ox 93% on ETT vent; ll3 21:56 BP 142 / 60; Pulse 133; Resp 23; Temp 98.8(C); Pulse Ox 92% on ETT vent; ll3 22:33 BP 158 / 87; Pulse 134; Resp 22; Temp 98.8(C); Pulse Ox 92% on ETT vent; ll3 18:17 Body Mass Index 29.35 (80.00 kg, 165.10 cm) mb9 MDM: 18:47 Data reviewed: vital signs, nurses notes, EMS record, lab test result(s), EKG, sp3 radiologic studies. ED course: Arterial blood gas demonstrates 7.14 with 80 PO2. PEEP will be increased to 10 and Levophed is also been started secondary to low blood pressure secondary to positive inspiratory pressure on the ventilator along with propofol use. Cefepime and vancomycin will also be started prior to transfer. Urine output will be monitored now to monitor fluid status. Given her ABG, most of her acidosis is metabolic in origin and we will treat her as a sepsis patient.. 18:58 ED course: Chest x-ray after ET tube pulled back demonstrates proper place just above sp3 the missy. All laboratory values are still pending. We will be transferring patient to night physician for final disposition.. 19:05 Patient medically screened. rn 19:29 ED course: Spoke with family, was complaining of SOB, "was foaming at mouth", "bit rn tongue", and 911 was called. Family states did not take BP meds as they could not find them after discharge from the hospital. Updated family. . 19:34 Differential diagnosis: Chronic Obstructive Pulmonary Disease Myocardial Infarction rn pneumonia, Pneumothorax pulmonary edema, Sepsis. Counseling: I had a detailed discussion with the patient and/or guardian regarding: the historical points, exam findings, and any diagnostic results supporting the discharge/admit diagnosis, lab results, radiology results, the need to transfer to another facility, for higher level of care, [facility] does not immediately have the required specialist. Response to treatment: the patient's symptoms have mildly improved after treatment, and as a result, I will admit patient. 21:13 ED course: Decreasing levophed drip. . rn 21:14 ED course: Pt getting 30ml/kg bolus, improved BP, titrating levophed down, sepsis rn reevaluation complete. . 21:14 ED course: ABG improving as well. Lactate sent, but lab chemistry machine is down, labs rn sent to outside hospital lab. . 21:17 ED course: Tidal volume decreased to 400 as recommended by broodmare barn groom after rn consultation.. 06/10 18:21 Order name: CBC with Diff; Complete Time: 20:04 [facility] 06/10 18:21 Order name: LFT's [facility] 06/10 18:21 Order name: Magnesium [facility] 06/10 18:21 Order name: NT PRO-BNP [facility] 06/10 18:21 Order name: PT-INR; Complete Time: 19:18 [facility] 06/10 18:21 Order name: Troponin HS [facility] 06/10 18:21 Order name: Blood Culture Adult (2) [facility] 06/10 18:21 Order name: CMP [facility] 06/10 18:21 Order name: Ptt, Activated; Complete Time: 19:18 [facility] 06/10 18:24 Order name: ABG; Complete Time: 19:18 mb9 06/10 18:52 Order name: COVID-19/FLU A+B; Complete Time: 20:32 sp3 06/10 18:21 Order name: XRAY Chest (1 view); Complete Time: 19:34 [facility] 06/10 18:31 Order name: Chest Single View XRAY; Complete Time: 19:34 mb9 06/10 19:16 Order name: Manual Differential; Complete Time: 20:04 [facility] 06/10 19:33 Order name: Urine Drug Screen [facility] 06/10 20:01 Order name: Urine Dipstick-Ancillary; Complete Time: 20:04 [facility] 06/10 20:53 Order name: ABG rn 06/10 18:21 Order name: EKG; Complete Time: 18:21 [facility] 06/10 18:21 Order name: Cardiac monitoring; Complete Time: 18:22 [facility] 06/10 18:21 Order name: EKG - Nurse/Tech; Complete Time: 18: [facility] 06/10 18:21 Order name: IV Saline Lock; Complete Time: 18: [facility] 06/10 18:21 Order name: Labs collected and sent; Complete Time: 18: [facility] 06/10 18:21 Order name: O2 Per Protocol; Complete Time: 18: [facility] 06/10 18:21 Order name: O2 Sat Monitoring; Complete Time: 18: [facility] 06/10 18:21 Order name: Accucheck; Complete Time: 18: [facility] 06/10 18:21 Order name: IV Saline Lock - Large Bore; Complete Time: 18: [facility] 06/10 18:21 Order name: Urine Dipstick-Ancillary (obtain specimen); Complete Time: 18: [facility] 06/10 18:21 Order name: Vital Signs; Complete Time: 19:10 jmm Administered Medications: 17:58 Drug: NS 0.9% 1000 ml {Note: to L IO .} Route: IV; Rate: 1 bolus; Site: Other; ss 18:01 Drug: Etomidate 20 mg Route: IVP; Site: left forearm; ss 19:10 Follow up: Response: No adverse reaction ph 18:01 Drug: Succinylcholine 120 mg Route: IVP; Site: left forearm; ss 19:10 Follow up: Response: No adverse reaction ph 18:10 Drug: Propofol 5 mcg/kg/min Route: IV; Rate: calculated rate; Site: left forearm; mb9 18:20 Follow up: Rate change 25 mcg/kg/min ph 18:45 Follow up: Rate change 30 mcg/kg/min ph 19:12 Follow up: Rate change 35 mcg/kg/min ph 18:10 Drug: Propofol 5 mcg/kg/min Route: IV; Rate: calculated rate; Site: left forearm; mb9 18:34 Drug: Levophed (norepinephrine) 0.1 mcg/kg/min Route: IV; Rate: calculated rate; Site: mb9 right subclavian; 19:11 Follow up: Rate change 0.3 mcg/kg/min ph 19:07 Drug: Cefepime 2 grams Route: IVPB; Rate: 200 ml/hr; Infused Over: 30 mins; Site: right mb9 subclavian; 19:44 Follow up: Response: No adverse reaction; IV Status: Completed infusion; IV Intake: aa9 100ml 19:38 Drug: vancoMYCIN 1 grams Route: IVPB; Infused Over: 2 hrs; Site: right subclavian; ph 19:55 Drug: Dilaudid (HYDROmorphone) 1 mg Route: IVP; Site: right subclavian; ph 20:06 Not Given (Duplicate Order): NS 0.9% (30 ml/kg) 30 ml/kg IV at bolus once; Sepsis ph Protocol; 1 L already administered. 20:11 Drug: NS 0.9% (30 ml/kg) 30 ml/kg Route: IV; Rate: bolus; Site: right subclavian; ph 20:28 Drug: NS 0.9% (30 ml/kg) 30 ml/kg Route: IV; Rate: bolus; Site: right subclavian; ph 21:32 Drug: Midazolam 2 mg Route: IVP; Site: right subclavian; ll3 21:37 Drug: Dilaudid (HYDROmorphone) 1 mg Route: IVP; Site: right subclavian; ll3 Point of Care Testing: Blood Glucose: 18:02 Blood Glucose: 203 mg/dL; ss Ranges: Critical Glucose Levels:Adult <50 mg/dl or >400 mg/dl <40 mg/dl or >180 mg/dl Disposition: 19:34 Critical Care:. rn Disposition Summary: 06/10/22 19:36 Transfer Ordered Transfer Location: [facility] rn Reason: Higher level of care rn Condition: Stable rn Problem: new rn Symptoms: have improved rn Accepting Physician: (06/10/22 22:35) ll3 Diagnosis - Severe sepsis with septic shock rn - Pneumonia, unspecified organism rn - Acute respiratory failure rn Forms: - Medication Reconciliation Form rn - SBAR form collar turner operator time excluding procedures: 19:34 Critical care time: Bedside Care: 35 minutes, Family Intervention: 5 minutes. Total rn time: 40 minutes Signatures: Dispatcher [employer] EDMS Manpreet Ford PA PA jmm Nieto, Roman, MD MD rn Smirch, Shelby RN RN Lakshmi Simpson RN RN Michael Cerrato MD MD sp3 Debra Ramos RN RN ll3 Pia Vergara PA-C PA-C sb4 Ann Gunderson RN RN mb9 Lydia Browning RN aa9 Corrections: (The following items were deleted from the chart) 18:23 18:21 BASIC METABOLIC PANEL+C.LAB.BRZ ordered. EDMS EDMS 20:49 18:22 BLOOD CULTURE*+BA.LAB.BRZ ordered. EDMS EDMS 22:33 22:18 Magnesium ordered. EDMS EDMS 22:33 22:18 NT PRO-BNP ordered. EDMS EDMS 22:33 22:18 T4 Free ordered. EDMS EDMS 22:34 22:18 Cortisol ordered. EDMS EDMS 22:34 22:18 Procalcitonin ordered. EDMS EDMS 22:34 22:18 Thyroid Stimulating Hormone ordered. EDMS EDMS 22:34 22:18 Troponin High Sensitivity ordered. EDMS EDMS 22:35 19:36 rn ll3
[2022-06-10 19:46] LABS: Blood Morphology Comment NOT SEEN (NOT SEEN); Platelet Estimate ADEQ
[2022-06-10] MEDS ORDERED: HYDROMORPHONE HCL 1 MG/ML INJ ONE ×2 (19:52→21:30)
[2022-06-10] MEDS ORDERED: D5W 1,000 ML with NA BICARB 8.4% 100 MEQ IV SCH ×2 (20:00)
[2022-06-10 20:01] LABS: Urine Blood 1+ (Negative); Urine Glucose Negative (Negative); Urine Protein 2+ (Negative); Urine Specific Gravity 1.025 (1.005-1.030)
[2022-06-10] MEDS ORDERED: NA CHLORIDE 0.9% 500 ML ONE (20:08)
[2022-06-10] MEDS ORDERED: NA CHLORIDE 0.9% 1,000 ML ONE (20:08)
[2022-06-10 20:23] LABS: SARS-COV-2 RT PCR NEGATIVE (NEGATIVE)
[2022-06-10 21:06] LABS: Arterial Blood Carboxyhemoglob 1.2 % (0-1.5); Blood Gas Oxyhemoglobin 89.3 % (94-97); Blood O2 Saturation 91.8 % (92-98.5)
[2022-06-10] MEDS ORDERED: MIDAZOLAM HCL 2 MG/2 ML INJ ONE (21:29)
[2022-06-10 23:18] VITALS: TEMP 98.8; O2SAT 92
[2022-06-10 23:19] VITALS: BP 158/87
[2022-06-11 02:30] LABS: Barbiturates NEGATIVE (NEGATIVE); Benzodiazepines NEGATIVE (NEGATIVE); Cocaine NEGATIVE (NEGATIVE); METHAMPHETAM NEGATIVE (NEGATIVE); Methadone NEGATIVE (NEGATIVE); Opiates POSITIVE (NEGATIVE); Phencyclidine NEGATIVE (NEGATIVE); THC Cannibis NEGATIVE (NEGATIVE)
[2022-06-11 19:46] LABS: Magnesium 2.2
[2022-06-11 19:49] LABS: Potassium 4.1
[2022-06-11 20:28] LABS: Bilirubin Total 0.6
[2022-06-11 20:31] LABS: Protein, Total 7.3
[2022-06-11 20:32] LABS: Albumin 3.6
[2022-06-11 20:50] LABS: Troponin High Sensitivity 0.011 (<58.9)
[2022-06-12 07:58] LABS: Phosphorus 9.5 mg/dL (2.5-4.9)
[2022-06-12 11:58] LABS: Glomerular Filtration Rate 62.25
== END 2022-06-10 22:35 | disposition short-term general hospital (02) ==
LOC: ER 17:57
PROC: 0BH17EZ Insertion of Endotracheal Airway into Trachea, Via Natural or Artificial Opening (ICD-10-PCS; principal; 2022-06-10)
DX: J18.9 Pneumonia, unspecified organism (principal); R65.21 Severe sepsis with septic shock; J96.00 Acute respiratory failure, unspecified whether with hypoxia or hypercapnia; J44.9 Chronic obstructive pulmonary disease, unspecified; I10 Essential (primary) hypertension; E11.9 Type 2 diabetes mellitus without complications; Z20.822 Contact with and (suspected) exposure to COVID-19
CPT/HCPCS: 87040 ×2; 85025; 36415; 83735; 84100; 85610; 80076; 85730; 81003; 84484; 80053; 83880; 0240U; 80307; 71045 ×2; 94002; 82805 ×2; 31500; 51702; 99291; 99292; J0330; J2704 ×2; J2250; J3370; J0692; J1170 ×2; J7050; J7040; J7030